=== PATIENT | female | born 1995 | race Caucasian/White ===

== ENCOUNTER → 2017-08-01 11:44 | Outpatient (CLI) | payer BC, SELFPAY ==
[2017-08-01 12:04] LABS: Basophils % 0.2 % (0.1-2.0); Eosinophils # 0.3 K/mm3 (0.0-0.4); Eosinophils % 3.1 % (0.1-12.0); Hematocrit 49.4 % (37.0-47.0); Hemoglobin 16.1 g/dL (12.2-16.2); Lymphocytes # 2.2 K/mm3 (0.7-4.5); Mean Corpuscular HGB Conc 32.5 g/dL (31.8-35.4); Mean Corpuscular Hemoglobin 31.4 pg (27.0-31.2); Mean Corpuscular Volume 96.6 fl (81-99); Mean Platelet Volume 7.6 fl (7.4-10.4); Monocytes # 0.5 K/mm3 (0.1-1.0); Neutrophils # 6.1 K/mm3 (1.8-7.8); Neutrophils % 67.7 % (37.0-80.0); Platelet Count 316 K/mm3 (142-424); Red Blood Count 5.12 M/mm3 (4.20-5.40); Red Cell Distribution Width 12.8 % (11.5-17.5)
[2017-08-01 12:13] LABS: Albumin Level 3.9 gm/dL (3.4-5.0); Anion Gap 14.2 mEq/L (5-15); Blood Urea Nitrogen 11 mg/dL (7-18); Calcium 8.8 mg/dL (8.5-10.1); Carbon Dioxide 24 mmol/L (21.0-32.0); Chloride 103 mmol/L (98-107); Creatinine,Serum 0.86 mg/dL (0.55-1.02); Estimated Glomerular Filt Rate 81 ml/min (>60); GFR (African American) 98 ML/MIN (>60); Glucose 91 mg/dL (74-106); Potassium 4.2 mmoL/L (3.5-5.1); Sodium 137 mmol/L (136-145)
[2017-08-01 12:26] LABS: Alanine Aminotransferase 44 U/L (12-78); Alkaline Phosphatase 94 U/L (46-116); Aspartate Amino Transferase 25 U/L (15-37); Bilirubin,Total 0.4 mg/dL (0.2-1.0); Chol/HDL Ratio 6.5 (1-3.5); Cholesterol 203 mg/dL (140-200); Globulin 4.1 gm/dl (1.3-3.2); HDL Cholesterol 31 mg/dL (29-89); LDL Cholesterol 151 mg/dL (0-130); Triglycerides 105 mg/dL (30-200); VLDL Cholesterol 21 mg/dL (0-40)
[2017-08-04 15:39] LABS: Testosterone, Total, LC/MS 534.7 ng/dL (10.0-55.0)
== END ==
PROVIDERS: PCP Internal Medicine; Visit Provider Internal Medicine
DX: F64.0 Transsexualism (principal); R53.83 Other fatigue
CPT/HCPCS: 36415; 80053; 80061; 84403; 85025

== ENCOUNTER → 2019-07-29 09:48 | Outpatient (CLI) | payer OTHER, SELFPAY ==
[2019-07-29 10:28] LABS: Basophils % 0.2 % (0.1-2.0); Eosinophils # 0.2 K/mm3 (0.0-0.4); Eosinophils % 2.4 % (0.1-12.0); Hematocrit 47.7 % (37.0-47.0); Hemoglobin 15.6 g/dL (12.2-16.2); Lymphocytes # 2.3 K/mm3 (0.7-4.5); Lymphocytes % 25.4 % (10-50); Mean Corpuscular HGB Conc 32.8 g/dL (31.8-35.4); Mean Corpuscular Hemoglobin 31.9 pg (27.0-31.2); Mean Corpuscular Volume 97.5 fl (81-99); Mean Platelet Volume 7.6 fl (7.4-10.4); Monocytes # 0.4 K/mm3 (0.1-1.0); Neutrophils # 6.1 K/mm3 (1.8-7.8); Neutrophils % 68.1 % (37.0-80.0); Platelet Count 317 K/mm3 (142-424); Red Cell Distribution Width 12.9 % (11.5-17.5); White Blood Count 8.9 K/mm3 (4.8-10.8)
[2019-07-29 13:10] LABS: Chloride 103 mmol/L (98-107); Potassium 4.9 mmoL/L (3.5-5.1); Sodium 140 mmol/L (136-145)
[2019-07-29 13:12] LABS: Blood Urea Nitrogen 11 mg/dl (7-17); Estimated Glomerular Filt Rate 87 ml/min (>60); GFR (African American) 105 ML/MIN (>60)
[2019-07-29 13:13] LABS: Alanine Aminotransferase 56 U/L (12-78); Albumin Level 4.6 g/dl (3.5-5.0); Albumin/Globulin Ratio 1.5 (1.1-1.8); Alkaline Phosphatase 78 U/L (38-126); Anion Gap 13.9 mEq/L (5-15); Aspartate Amino Transferase 40 U/L (14-36); Bilirubin,Total 0.4 mg/dl (0.2-1.3); Calcium 10.1 mg/dl (8.4-10.2); Carbon Dioxide 28 mmol/L (22.0-30.0); Chol/HDL Ratio 6.6 (1-3.5); Cholesterol 230 mg/dl (140-200); Globulin 3.1 g/dL (1.3-3.2); Glucose 81 mg/dl (74-100); HDL Cholesterol 35 mg/dl (40-60); Total Protein,Serum 7.7 g/dl (6.3-8.2); Triglycerides 136 mg/dl (30-150); VLDL Cholesterol 27 mg/dL (0-40)
[2019-07-29 13:24] LABS: Direct LDL Cholesterol 169.82 mg/dL (100-129)
[2019-08-01 09:54] LABS: Testosterone, Total, LC/MS 205.5 ng/dL (10.0-55.0)
== END ==
PROVIDERS: Visit Provider Physician Assistant Medical
DX: F64.0 Transsexualism (principal)
CPT/HCPCS: 36415; 80053; 80061; 84403; 85025

== ENCOUNTER → 2020-12-11 18:48 | Outpatient (CLI) | payer OTHER, SELFPAY ==
[2020-12-11 19:00] LABS: Coronavirus 19, PCR Not Detected (NotDetected); Influenza A, PCR Not Detected (NotDetected); Influenza B, PCR Not Detected (NotDetected)
== END ==
PROVIDERS: Visit Provider Nurse Practitioner Family
DX: Z11.52 Encounter for screening for COVID-19 (principal); R05 Cough; R09.89 Other specified symptoms and signs involving the circulatory and respiratory systems
CPT/HCPCS: U0003

== ENCOUNTER → 2021-05-08 19:04 | Outpatient (CLI) | payer OTHER, SELFPAY ==
[2021-05-08 19:06] VITALS: BMI 28.8
== END ==
PROVIDERS: Visit Provider Nurse Practitioner
DX: Z20.822 Contact with and (suspected) exposure to COVID-19 (principal)
CPT/HCPCS: C9803; U0003; U0005

== ENCOUNTER 2021-06-03 03:25 | Emergency (ER) | payer OTHER, SELFPAY ==
[2021-06-03 03:26] VITALS: BP 132/90; PULSE 110; RESP 16; TEMP 36.7; O2SAT 98; BMI 26.1
--- NOTE | 2021-06-03 03:41 | HMH.EDWNDL ---
ED Disposition Clinical Impression: Laceration of hand Qualifiers: Encounter type: initial encounter Foreign body presence: without foreign body Laterality: right Qualified Code(s): S61.411A - Laceration without foreign body of right hand, initial encounter Disposition: Home, Self-Care Condition on Discharge: Good Instructions: DI for Laceration Repair Additional Instructions: sutures out 10-12 days Referrals: Provider,Referral, MD [Primary Care Provider] - - Critical Care Critical Care Time: No Attestation: On , the high probability of a clinically significant, sudden or life threatening deterioration of the following system(s) required my full and direct attention, intervention and personal management. The time I documented below is in addition to time spent performing reported procedures but includes the following listed in this critical care notation. Medical Decision Making - Medical Records Medical records reviewed: Yes: I reviewed the patient's medical records. - [place] Inquiry Pt receiving controlled substance: No Vital Signs: 06/03/21 03:26 Temperature Source Oral Respiratory Rate 16 02 Sat by Pulse Oximetry 98 Oxygen Delivery Method Room Air Orders (Tests/Meds): ED MEDICATIONS Discontinued Medications Generic Name Dose Route Start Last Admin Trade Name Freq PRN Reason Stop Dose Admin Tetanus/Diphtheria Toxoids 0.5 ml 06/03/21 03:40 Tetanus-Diphth Toxoid, Adult 0.5ml Syr IM 06/03/21 03:41 .ONCE ONE Medical Decision Narrative: has lac and workman comp forms completed Wound/Laceration HPI - General Chief Complaint: Wound/Laceration Stated Complaint: Laceration Time Seen by Provider: 06/03/21 03:30 Mode of Arrival: Ambulatory Source of Information: Patient, Medical Record Limitations: No Limitations Description of Symptoms (Recalled from ER Triage Doc. by RN): pt cut hand on metal of ambulance bay door when cleaning it 1 hour prior to arrival. Laceration to dorsal surface. Bleeding controled with pressure. - History of Present Illness HPI narrative: lac rt hand at work this am Onset (ago): hour(s) Extremity Location: Right: hand Place: work Patient tetanus UTD: No Context: accidental Associated symptoms: none - Related Data Previous Rx's Medication Instructions Recorded dextroamphetamine-amphetamine ER 30 mg PO DAILY #30 cap 05/30/21 30 mg 24hr capsule,extend release Allergies Allergy/AdvReac Type Severity Reaction Status Date / Time No Known Allergies Allergy Unverified 02/27/21 09:05 [facility] History - Hepatitis A Screen Drug use history?: No High risk sexual behaviors?: No History of sexually transmitted infection?: No Currently employed?: No Childcare worker?: No Do you have indoor plumbing?: Yes Do you have electricity?: Yes Attestation statement:: This patient has been screened for Hepatitis A risk factors. I have reviewed the patient's past medical history: Yes - Social History Smoking Status: Current every day smoker Tobacco Type: cigarettes # Packs/Day (cigarettes): 1 Alcohol Intake: never Substance Use Type: denies use Occupational Status: employed ROS Obtained: No All systems reviewed & no additional complaints - Constitutional Constitutional: Denies fever(s) - Eyes Eyes: Denies change in vision - ENT Ears, Nose, Mouth, and Throat: Denies sore throat - Cardiovascular Cardiovascular: Denies chest pain - Respiratory Respiratory: Denies cough - Gastrointestinal Gastrointestingal: Denies: abdominal pain - Genitourinary Female Genitourinary: Denies hematuria - Musculoskeletal Musculoskeletal: Denies joint pain - Integumentary/Breasts Skin/Breast: Reports as per HPI, Denies rash - Neurologic Neurologic: Denies seizure-like activity Physical Exam - General General appearance: alert - Head Head exam: normocephalic - Eye Eye exam: Present: PERRL, EOMI - ENT ENT exam: Pre
[2021-06-03 03:53] VITALS: BP 128/79; PULSE 105; RESP 16; TEMP 36.7; O2SAT 98
== END 2021-06-03 03:57 | disposition home or self-care (01) ==
LOC: ER 03:50
PROVIDERS: Emergency Provider Emergency Medicine
DX: S61.411A Laceration without foreign body of right hand, initial encounter (principal); W26.8XXA Contact with other sharp object(s), not elsewhere classified, initial encounter; Y99.0 Civilian activity done for income or pay; Z23 Encounter for immunization; F17.210 Nicotine dependence, cigarettes, uncomplicated
CPT/HCPCS: 12001; 90471; 90714; 99282

== ENCOUNTER → 2021-09-12 15:32 | Outpatient (CLI) | payer OTHER, SELFPAY ==
[2021-09-12 16:08] LABS: Chloride 103 mmol/L (98-107)
[2021-09-12 16:09] LABS: Potassium 3.7 mmoL/L (3.5-5.1); Sodium 139 mmol/L (136-145)
[2021-09-12 16:11] LABS: Alanine Aminotransferase 38 U/L (12-78); Albumin Level 4.6 g/dl (3.5-5.0); Albumin/Globulin Ratio 1.5 (1.1-1.8); Alkaline Phosphatase 89 U/L (38-126); Anion Gap 12.7 mEq/L (5-15); Aspartate Amino Transferase 40 U/L (14-36); Bilirubin,Total 0.6 mg/dl (0.2-1.3); Blood Urea Nitrogen 11 mg/dl (7-17); Carbon Dioxide 27 mmol/L (22.0-30.0); Cholesterol 206 mg/dl (140-200); Estimated Glomerular Filt Rate 100 ml/min (>60); GFR (African American) 121 ML/MIN (>60); Globulin 3.1 g/dL (1.3-3.2); Total Protein,Serum 7.7 g/dl (6.3-8.2); Triglycerides 103 mg/dl (30-150); VLDL Cholesterol 21 mg/dL (0-40)
[2021-09-12 16:12] LABS: Chol/HDL Ratio 4.6 (1-3.5); Glucose 99 mg/dl (74-100); HDL Cholesterol 45 mg/dl (40-60)
[2021-09-12 16:20] LABS: Hematocrit 44.3 % (37.0-47.0); Hemoglobin 15.3 g/dL (12.2-16.2); Mean Corpuscular HGB Conc 34.6 g/dL (31.8-35.4); Mean Corpuscular Hemoglobin 34.5 pg (27.0-31.2); Mean Corpuscular Volume 99.9 fl (81-99); Platelet Count 333 K/mm3 (142-424); Red Blood Count 4.43 M/mm3 (4.20-5.40); Red Cell Distribution Width 13.1 % (11.5-17.5); White Blood Count 9.9 K/mm3 (4.8-10.8)
[2021-09-12 16:23] LABS: Direct LDL Cholesterol 119.12 mg/dL (100-129)
[2021-09-22 12:19] LABS: Testosterone, Total, LC/MS 193.1 ng/dL (10.0-55.0)
== END ==
LOC: LAB 15:32
PROVIDERS: Visit Provider Nurse Practitioner Family
DX: F64.0 Transsexualism (principal)
CPT/HCPCS: 80053; 80061; 84403; 85014; 85018; 85048; 85049

== ENCOUNTER → 2021-12-18 16:56 | Outpatient (CLI) | payer OTHER, SELFPAY ==
[2021-12-18 17:30] LABS: Influenza A, PCR Not Detected (NotDetected); Influenza B, PCR Not Detected (NotDetected)
[2021-12-18 17:53] LABS: Coronavirus 19, PCR Detected (NotDetected)
== END ==
PROVIDERS: Visit Provider Emergency Medicine
DX: U07.1 COVID-19 (principal)
CPT/HCPCS: C9803; U0003; U0005

== ENCOUNTER → 2022-07-08 22:39 | Outpatient (CLI) | payer OTHER, SELFPAY ==
[2022-07-08 23:14] LABS: Basophils # 0.1 K/mm3 (0-0.2); Basophils % 1.3 % (0.1-2.0); Eosinophils # 0.3 K/mm3 (0.0-0.4); Eosinophils % 2.6 % (0.1-12.0); Hematocrit 46.6 % (37.0-47.0); Hemoglobin 15.3 g/dL (12.2-16.2); Lymphocytes % 28.9 % (10-50); Mean Corpuscular HGB Conc 32.8 g/dL (31.8-35.4); Mean Corpuscular Hemoglobin 32.5 pg (27.0-31.2); Mean Corpuscular Volume 98.9 fl (81-99); Mean Platelet Volume 7.9 fl (7.4-10.4); Monocytes # 0.6 K/mm3 (0.1-1.0); Monocytes % 5.3 % (1.7-9.3); Neutrophils # 6.4 K/mm3 (1.8-7.8); Platelet Count 405 K/mm3 (142-424); Red Blood Count 4.71 M/mm3 (4.20-5.40); Red Cell Distribution Width 13.2 % (11.5-17.5); White Blood Count 10.3 K/mm3 (4.8-10.8)
[2022-07-08 23:19] LABS: Chol/HDL Ratio 5.7 (1-3.5); Cholesterol 247 mg/dl (140-200); HDL Cholesterol 43 mg/dl (40-60); Triglycerides 212 mg/dl (30-150); VLDL Cholesterol 42 mg/dL (0-40)
[2022-07-08 23:30] LABS: Direct LDL Cholesterol 139.52 mg/dL (100-129)
[2022-07-18 23:22] LABS: Testosterone, Total, LC/MS 177 ng/dL (.)
== END ==
LOC: LAB 22:45
PROVIDERS: Visit Provider Internal Medicine
DX: F64.0 Transsexualism (principal)
CPT/HCPCS: 80061; 84403; 85025

== ENCOUNTER → 2022-08-23 10:34 | Outpatient (CLI) | payer OTHER, SELFPAY ==
[2022-08-23 11:04] LABS: Chloride 107 mmol/L (98-107); Potassium 4.2 mmoL/L (3.5-5.1); Sodium 141 mmol/L (136-145)
[2022-08-23 11:07] LABS: Alanine Aminotransferase 43 U/L (12-78); Albumin Level 4.7 g/dl (3.5-5.0); Albumin/Globulin Ratio 1.3 (1.1-1.8); Alkaline Phosphatase 77 U/L (38-126); Anion Gap 11.2 mEq/L (5-15); Aspartate Amino Transferase 40 U/L (14-36); Bilirubin,Total 0.4 mg/dl (0.2-1.3); Blood Urea Nitrogen 15 mg/dl (7-17); Calcium 9.5 mg/dl (8.4-10.2); Carbon Dioxide 27 mmol/L (22.0-30.0); Estimated Glomerular Filt Rate 74 ml/min (>60); GFR (African American) 90 ML/MIN (>60); Globulin 3.5 g/dL (1.3-3.2); Glucose 73 mg/dl (74-100); Total Protein,Serum 8.2 g/dl (6.3-8.2)
== END ==
PROVIDERS: Visit Provider Nurse Practitioner Family
DX: F64.9 Gender identity disorder, unspecified (principal)
CPT/HCPCS: 80053

== ENCOUNTER 2022-09-02 08:40 | Emergency (ER) | payer OTHER, SELFPAY ==
[2022-09-02 08:41] VITALS: BP 148/95; PULSE 115; RESP 18; TEMP 36.8; O2SAT 100; BMI 28.1
--- NOTE | 2022-09-02 09:02 | EXP.UTC ---
Discharge Plan Disposition Patient Disposition: Home, Self-Care Condition: Good Prescriptions Prescriptions: New methylprednisolone 4 mg Tablets,Dose Pack 4 mg PO DIRECTED Qty: 21 0RF No Action dextroamphetamine-amphetamine [Adderall] 10 mg tablet 10 mg PO DAILY Qty: 30 0RF Rx Instructions: in the afternoon Vyvanse 60 mg capsule 60 mg PO DAILY Qty: 30 0RF Referrals Follow up/Referrals: Provider,Referral, MD [Primary Care Provider] - See instructions Activity Restrictions/Add. Instructions Additional Instructions/Restrictions: Drink plenty of fluids. Take tylenol for pain or fever. Don't start the oral steroids until tomorrow, since you had the shot here today. Take the medications as directed. Follow up with your regular doctor. GO TO THE ER FOR ANY WORSENING SYMPTOMS Clinical Impressions Clinical Impression: Laryngitis Stand Alone Forms Stand Alone Forms: Work/School Release Discharge ED Provider: Roc Mcfadden [facility] General Stated complaint: Loss of voice, stiff neck Mode of Arrival: Ambulatory Limitations: No Limitations Time Seen by Provider: 09/02/22 09:02 HEENT Symptoms (Recalled from RN notes): Yes Resp Symptoms (Recalled from RN notes): No Skin Symptoms (Recalled from RN notes): No MS Symptoms (Recalled from RN notes): No Functional Status (Recalled from RN notes): WNL History of Present Illness Provider Complaint: PT WITH 1 WEEK + OF HOARSE, NO VOICE. REPORTS THROAT FEELS CONSTRICTED. HE IS ABLE TO TOLERATE PO INTAKE WELL. Related Data Previous Rx's Medication Instructions Recorded dextroamphetamine-amphetamine 10 10 mg PO DAILY #30 tabs 07/24/22 mg tablet (Adderall) lisdexamfetamine 60 mg capsule 60 mg PO DAILY #30 caps 07/24/22 (Vyvanse) methylprednisolone 4 mg tablets in 4 mg PO DIRECTED #21 tabs 09/02/22 a dose pack Allergies Allergy/AdvReac Type Severity Reaction Status Date / Time No Known Allergies Allergy Verified 07/24/22 15:01 Worker's Comp Is this a Worker's Comp case?: No [facility] Disclaimer: The information contained in this section may have been updated after the patient was seen, as this information can be updated by other users. Medical History Attention Deficit Hyperactivity Disorder (ADHD) Social History Smoking Status: Current every day smoker tobacco type: cigarettes packs per day: 1 alcohol intake: never substance use type: denies use current occupational status: employed Travel in the last 8 weeks: None number of children: 1 ROS Obtained: Yes All systems reviewed & no additional complaints except as documented Constitutional Constitutional: Denies chills and Denies fever(s) Eyes Eyes: Denies eye discharge ENT Ears, Nose, Mouth, and Throat: Reports as per HPI, Denies dizziness, Denies otalgia and Reports sore throat Cardiovascular Cardiovascular: Denies chest pain Respiratory Respiratory: Denies shortness of breath, Denies chest congestion, Denies cough, Denies stridor and Denies wheezing Gastrointestinal Gastrointestingal: Denies nausea or vomiting Musculoskeletal Musculoskeletal: Reports system reviewed and no additional complaints, except as documented and Denies arthralgias Integumentary/Breasts Skin/Breast: Denies rash Neurologic Neurologic: Denies dizziness and Denies paresthesias Allergic/Immunologic Allergic/Immunologic: Denies wheezing Physical Exam General General appearance: alert and in no apparent distress Head Head exam: atraumatic, normocephalic and normal inspection Eye Eye exam: Present normal appearance, PERRL and EOMI ENT ENT exam: Present normal exam, normal oropharynx, mucous membranes moist, TM's normal bilaterally and normal external ear exam Neck Neck exam: Present normal inspection, full ROM and trachea midline; Absent meningismus or lymphadenop
--- NOTE | 2022-09-02 09:10 | XR_ITS ---
FINAL REPORT CLINICAL HISTORY: feeling of it being hard to breath, hoarseness of voice FINDINGS: Two views were obtained. Airway appears patent. No acute fracture or malalignment. Precervical soft tissues are unremarkable. There is loss of the normal cervical lordosis. IMPRESSION: No acute findings. Reviewed, Interpreted and Dictated by Paco Sevilla MD Transcribed by Jennifer Plascencia Authenticated and [facility]
[2022-09-02 10:20] VITALS: BP 148/95; PULSE 115; RESP 18; TEMP 36.8; O2SAT 100
== END 2022-09-02 10:20 | disposition home or self-care (01) ==
PROVIDERS: Emergency Provider Nurse Practitioner Family
DX: J04.0 Acute laryngitis (principal); F17.210 Nicotine dependence, cigarettes, uncomplicated
CPT/HCPCS: 70360; 96372; 99212; 99214; G0463

== ENCOUNTER 2022-12-27 11:00 | Emergency (ER) | payer OTHER, SELFPAY ==
[2022-12-27 11:01] VITALS: BP 151/97; PULSE 124; RESP 18; TEMP 37; O2SAT 99; BMI 28.1
--- NOTE | 2022-12-27 11:09 | EXP.UTC ---
Discharge Plan Disposition Patient Disposition: Home, Self-Care Condition: Good Prescriptions Prescriptions: New Paxlovid 300 mg (150 mg x 2)-100 mg tablets,dose pack See Rx Instructions .ROUTE .COMPLEX Qty: 30 0RF Rx Instructions: take TWO 150 mg tablets of nirmatrelvir with ONE 100 mg tablet of ritonavir twice daily for 5 days prednisone 20 mg tablet 20 mg PO BID Qty: 10 0RF No Action dextroamphetamine-amphetamine [Adderall] 10 mg tablet 10 mg PO DAILY Qty: 30 0RF Rx Instructions: in the afternoon Vyvanse 60 mg capsule 60 mg PO DAILY Qty: 7 0RF methylprednisolone 4 mg Tablets,Dose Pack 4 mg PO DIRECTED Qty: 21 0RF Referrals Follow up/Referrals: Provider,Referral, MD [Primary Care Provider] - See instructions Activity Restrictions/Add. Instructions Additional Instructions/Restrictions: COVID19 pending Clinical Impressions Clinical Impression: Close exposure to COVID-19 virus Stand Alone Forms Stand Alone Forms: Work/School Release Instructions Patient Instructions: DI for COVID-19 (Suspected or Confirmed ) Discharge ED Provider: July Cross [facility] [place] General Stated complaint: exposed to covid, fever,cough Time Seen by Provider: 12/27/22 11:32 History of Present Illness Provider Complaint: Cough, fever, congestion X 1 day. Works for [employer] and numerous coworkers have COVID19. Onset (ago): day(s) (1) Location: chest Relieving factors: none Exacerbating factors: none Associated symptoms: denies other symptoms Treatments prior to arrival: none Related Data Previous Rx's Medication Instructions Recorded methylprednisolone 4 mg tablets in 4 mg PO DIRECTED #21 tabs 09/02/22 a dose pack dextroamphetamine-amphetamine 10 10 mg PO DAILY #30 tabs 12/23/22 mg tablet (Adderall) lisdexamfetamine 60 mg capsule 60 mg PO DAILY #7 caps 12/25/22 (Vyvanse) nirmatrelvir 300 mg (150 mg See Rx Instructions PO .COMPLEX 12/27/22 x2)-ritonavir 100 mg tablet,dose #30 tabs pack (Paxlovid) prednisone 20 mg tablet 20 mg PO BID #10 tabs 12/27/22 Allergies Allergy/AdvReac Type Severity Reaction Status Date / Time No Known Allergies Allergy Verified 07/24/22 15:01 [facility] Disclaimer: The information contained in this section may have been updated after the patient was seen, as this information can be updated by other users. Medical History Attention Deficit Hyperactivity Disorder (ADHD) Social History Smoking Status: Current every day smoker tobacco type: cigarettes packs per day: 1 alcohol intake: never substance use type: denies use current occupational status: employed Travel in the last 8 weeks: None number of children: 1 ROS Obtained: Yes All systems reviewed & no additional complaints except as documented Constitutional Constitutional: Reports body ache, Reports chills and Reports fever(s) Eyes Eyes: Denies eye discharge ENT Ears, Nose, Mouth, and Throat: Reports as per HPI, Denies dizziness, Denies otalgia and Reports sore throat Cardiovascular Cardiovascular: Denies chest pain Respiratory Respiratory: Denies shortness of breath, Denies chest congestion, Denies cough, Denies stridor and Denies wheezing Gastrointestinal Gastrointestingal: Denies nausea or vomiting Musculoskeletal Musculoskeletal: Reports system reviewed and no additional complaints, except as documented and Denies arthralgias Integumentary/Breasts Skin/Breast: Denies rash Neurologic Neurologic: Denies dizziness and Denies paresthesias Allergic/Immunologic Allergic/Immunologic: Denies wheezing Physical Exam General General appearance: alert and in no apparent distress Head Head exam: atraumatic, normocephalic and normal inspection Eye Eye exam: Present normal appearance, PERRL and EOMI ENT ENT exam: Present normal exam, normal oropharynx, mucou
[2022-12-27 11:44] VITALS: BP 151/97; PULSE 124; RESP 18; TEMP 37; O2SAT 99
== END 2022-12-27 11:45 | disposition home or self-care (01) ==
PROVIDERS: Emergency Provider Physician Assistant
DX: U07.1 COVID-19 (principal); R50.9 Fever, unspecified; F17.210 Nicotine dependence, cigarettes, uncomplicated; F90.9 Attention-deficit hyperactivity disorder, unspecified type
CPT/HCPCS: 99212; 99214; G0463

== ENCOUNTER 2023-11-18 10:48 | Outpatient (CLI) | payer OTHER, SELFPAY ==
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
== END 2023-11-18 23:59 | disposition home or self-care (01) ==
LOC: RAD 10:49
PROVIDERS: PCP Family Medicine; Visit Provider Family Medicine
DX: R07.81 Pleurodynia (principal); W34.00XA Accidental discharge from unspecified firearms or gun, initial encounter
CPT/HCPCS: 71046; 71100

== ENCOUNTER 2024-01-07 06:06 | Day surgery (SDC) | payer OTHER, SELFPAY ==
[2024-01-05 13:17] VITALS: BMI 28.1
[2024-01-07] VITALS (10 sets, daily range): BP systolic 121–127; BP diastolic 61–78; PULSE 81–117; RESP 17–22; TEMP 36–37.1; O2SAT 98–100
[2024-01-07 06:27] LABS: Urine Pregnancy, HCG Qual. Negative (Negative)
[2024-01-07] MEDS: LACTATED RINGERS 1000ML 1,000 ML 25 ML IV (06:37)
--- NOTE | 2024-01-07 06:48 | EXP.ANES.CKL ---
[facility] Disclaimer: The information contained in this section may have been updated after the patient was seen, as this information can be updated by other users. Medical History Insomnia Generalized anxiety disorder Close exposure to COVID-19 virus Laryngitis Attention Deficit Hyperactivity Disorder (ADHD) Laceration of hand Surgical History No significant past surgical history Family History Other No significant family history Social History (Updated 01/07/24 @ 06:24 by Monica Banks RN) Smoking Status: Current every day smoker tobacco type: cigarettes packs per day: 1 alcohol intake: current substance use type: denies use current occupational status: employed Travel in the last 8 weeks: None number of children: 1 [facility] Anesthesia Checklist Patient Identification Patient Identification: Arm Band and Other: Structural Data Admitted From: Home Planned Operative Procedure/s: Left chest foreign body removal Consent for Planned Operative Procedure(s) Verified: Yes Verified Documents: Surgical Consent and History and Physical NPO Status Verified Time NPO: 00:00 Additional verifications Patient : No Anesthesia Reactions: No Hx Blood Transfusions: No Blood Transfusion Reaction: No Cephalosporin Allergy: No Previous Colonoscopy: No Airway Assessment Mallampati Score:: Class II C-Spine Mobility Assessed: Yes Dentition: Good Dentition Neurological Assessment Level of Consciousness: Awake, Alert, Appropriate and Follows Commands Hx Seizures: No Numbness or tingling in extremities: No Anesthesia Plan Anesthesia Risk discussed: Yes ASA Class: II Anesthesia Type: General Preoperative Comments Pre-Operative Comments: Smoker. No previous surgeries. Anxious.
[2024-01-07] MEDS: CEFAZOLIN SODIUM 1 GM in 0.9 % SODIUM CHLORIDE 50 ML IV (07:45)
[2024-01-07] MEDS: LIDOCAINE 1% 20ML MDV 20 ML (07:50)
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
--- NOTE | 2024-01-07 08:37 | XR_ITS ---
FINAL REPORT TECHNIQUE: Single view chest CLINICAL HISTORY: post op foreign body removal FINDINGS: A single view of the chest was obtained. The heart and mediastinum are within normal limits. Foreign bodies are noted in the left lower thorax measuring up to 11 mm. The lungs are otherwise clear. There is no pneumothorax. Osseous structures are unremarkable. IMPRESSION: No acute cardiopulmonary process. Foreign bodies in the left lower thorax measuring up to 11 mm. Reviewed, Interpreted and Dictated by Izaiah Gomez III, MD Transcribed by Francy Ivory Authenticated and [facility]
--- NOTE | 2024-01-07 08:40 | XR_ITS ---
FINAL REPORT TECHNIQUE: Fluoroscopy provided in the OR. CLINICAL HISTORY: post foreign body removal 61.52 mGy 210.8 s FINDINGS: A single fluoroscopic image of the chest was obtained for foreign body removal. 2.10 seconds of fluoroscopy time is reported. 61.52 mGy. IMPRESSION: 2.1 seconds of fluoroscopy time, 61.52 mGy. Reviewed, Interpreted and Dictated by Izaiah Gomez III, MD Transcribed by Francy Ivory Authenticated and [facility]
--- NOTE | 2024-01-07 08:44 | EXP.ANES.I ---
[facility] Anesthesia Record Part I Anesthesia Record I Intake, IV Amount: 900 Hydration: Adequate Estimated blood loss (mL): 2 Urine output (mL): 0 Blood Products used (#): none Blood Pressure: 125/75 SaO2: 99 Pulse Rate: 117 Airway Patency: Patent Respiratory Rate: 22 Temperature: 97.8 F Patient is:: Drowsy and Stable Stable to PACU at:: 08:38
[2024-01-07] MEDS: KETOROLAC 30MG/ML VIAL 30 MG IV (08:48)
[2024-01-07] MEDS: MORPHINE 2MG/ML SYRINGE 1 MG IV (08:56)
[2024-01-07] MEDS: diphenhydrAMINE 50MG/ML VIAL 25 MG IV (09:03)
--- NOTE | 2024-01-08 08:32 | EXP.ANES.II ---
[facility] Anesthesia Record Part II Anesthesia Record Part II Discharge Time: 09:08 Destination: Surgical Day Care (OP Surgery) PACU nurse assessment reviewed?: Yes Patient Condition:: Good Anesthesia Complications:: None Swallowing reflex intact?: Yes Airway Patency: Patent Cyanosis?: No Blood Pressure: 123/64 SaO2: 99 Respiratory Rate: 18 Pulse Rate: 89 Temperature: 98.7 F Mental Status: Alert & Oriented Pain level:: 6 Nausea and/or vomitting:: None Intake, IV Amount: 0 Hydration: Adequate
[2024-01-08 08:33] VITALS: BP 123/64; PULSE 89; RESP 18; TEMP 37.1; O2SAT 99
== END 2024-01-07 10:05 | disposition home or self-care (01) ==
PROVIDERS: PCP Family Medicine; Visit Provider Surgery
PROC: (CPT 20101; principal; 2024-01-07 07:30)
DX: S21.142A Puncture wound with foreign body of left front wall of thorax without penetration into thoracic cavity, initial encounter (principal)
CPT/HCPCS: 20101; 71045; 81025; 96374; J1100; J1200; J1885; J2250; J2270; J2405; J3010; J7120